=== PATIENT | female | born 1935 | race Caucasian/White ===

== ENCOUNTER 2017-06-11 15:21 | Inpatient (IN) ==
[2017-06-11] MEDS ORDERED: NS 500 ML IV ONE (15:50)
[2017-06-11] MEDS ORDERED: SALINE FLUSH 10ml SYRINGE IVF PRN (15:50)
--- NOTE | 2017-06-11 15:56 | Emergency Department Report ---
General Adult HPI - General Chief complaint: Upper Respiratory Infection Stated complaint: cough,sore throat,weakness Time Seen by Provider: 06/11/17 15:39 Source: patient, family Mode of arrival: ambulatory Limitations: no limitations - History of Present Illness HPI narrative: Mrs. Caputo is an 81 year old female who is brought to ER by her daughter and son in law with complaints of upper resp illness. She was seen yesterday in PCP office, Dr. Medellin for symptoms. Rapid flu swab negative. Started on keflex for URI. It was suggested at that time for patient to be evaluated further in ER. 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 Patient has been very weak, with increased difficulty getting up and around at home. Denies fevers. Denies chest pain. Denies body aches. Denies headache. Feels symptoms are related to a sinus infection. Family reports some increased confusion this morning, mild. They also indicate patient seems more short of air but patient denies. Has not been drinking much fluids because of not feeling well. Denies n/ v/d. Denies abdominal pain. Denies dysuria or urinary symptoms. 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 No known hx of CHF particularly but does have a tendency to become edematous according to son in law. She also does have a hx of HTN and did take her BP medication a few hours ago. complaint: URI Onset (ago): day(s) (3) Location: head Relieving factors: none Exacerbating factors: none Associated symptoms: cough, loss of appetite, malaise, shortness of breath, weakness Treatments prior to arrival: none - Related Data Home Medications Medication Instructions Recorded Confirmed Atorvastatin Calcium 40 mg PO HS #0 09/17/14 06/11/17 Insulin Aspart [Novolog Flexpen] 18 unit SQ TIDWM #0 01/01/15 06/11/17 Insulin Detemir [Levemir] 41 unit SQ HS #0 vial 01/01/15 06/11/17 Cholecalciferol [Vit. D-3] 1,000 mg PO DAILY #0 07/24/15 06/11/17 Multivit-Min/FA/Lycopen/Lutein 1 tab PO MOWEFR #0 07/24/15 06/11/17 [Centrum Silver Tablet] Acetaminophen [Acetaminophen Extra 500 mg PO Q4H PRN 02/23/17 06/11/17 Strength] Furosemide [Lasix] 20 mg PO DAILY 02/23/17 06/11/17 Levothyroxine Tab [Synthroid] 25 mcg PO ACB 02/23/17 06/11/17 Dabigatran [Pradaxa] 150 mg PO BID 06/11/17 06/11/17 Labetalol [Normodyne] 200 mg PO BID 06/11/17 06/11/17 Lisinopril [Prinivil] 40 mg PO HS 06/11/17 06/11/17 NIFEdipine [Nifedipine ER] 60 mg PO DAILY 06/11/17 06/11/17 Promethazine HCl/Codeine 5 ml PO Q6H PRN 06/11/17 06/11/17 [Prometh-Codein 6.25-10 mg/5 ml] cephALEXin [Cephalexin] 500 mg PO QID 06/11/17 06/11/17 Allergies Allergy/AdvReac Type Severity Reaction Status Date / Time chloramphenicol Allergy Unknown Verified 06/11/17 15:30 Review of Systems All systems: reviewed and negative except as stated Constitutional: Reports: weakness. Denies: fever ENT: Reports: congestion. Denies: throat pain Cardiovascular: Denies: chest pain Respiratory: Reports: cough Gastrointestinal: Denies: abdominal pain, nausea, vomiting, diarrhea Musculoskeletal: Denies: back pain Neurological: Reports: weakness. Denies: headache Endocrine: Reports: fatigue PFSH Patient Stated Medical History Cataracts Yes Hearing Loss Yes Other HEENT Yes: Wears glasses Hypertension Yes Myocardial Infarction Yes Diabetes Mellitus Type 2 Yes Gastroesophageal Reflux Yes Disease Other GI Yes: Gallstones Hx Kidney Stones Yes Hx Urinary Tract Infection Yes Other Hematologic Yes: Takes Pladaxa Osteoarthritis Yes Other Musculoskeletal Yes: Diabetic neuropathy Shingles Yes: Resolved - Social History Smoking status: Never smoker Substance use type: does not use Alcohol intake frequency: does not drink Housing: house Household members: spouse Current occupational status: retired Physical Exam - General General appearance: alert, in distress (mild resp) - Head Head exam: atraumatic, normocephalic, normal inspection - Eye Eye exam: Present: normal appearance, PERRL. Absent: scleral icterus, conjunctival injection - Expanded ENT Exam Nose exam: Present: sinus tenderness (left maxillary) Throat exam: Present: other (dry mucosa) - Neck Neck exam: Present: normal inspection, full ROM, trachea midline - Chest Chest inspection: Present: normal inspection, symmetric chest wall rise - Respiratory Respiratory exam: Present: normal lung sounds bilaterally, other (exhibits mild dyspnea) - Cardiovascular Cardiovascular exam: Present: regular rate, normal rhythm, normal heart sounds - Abdominal Exam Abdominal exam: Present: soft, normal bowel sounds. Absent: distention, tenderness - Skin Skin exam: Present: warm, dry, intact - Neurological Exam Neurological exam: Present: alert, oriented X3 - Psychiatric Psychiatric exam: Present: normal affect, normal mood Course - Consultations Consultation #1: dread Time: 17:50 (admit obs-dehydration) Vital Signs Temperature 98.6 F 06/11/17 15:33 Pulse Rate 64 06/11/17 15:33 Respiratory Rate 24 06/11/17 15:33 Blood Pressure 94/53 06/11/17 15:33 Pulse Oximetry 92 06/11/17 15:33 Temperature 98.6 F 06/11/17 15:33 Pulse Rate 69 06/11/17 17:31 Respiratory Rate 20 06/11/17 17:31 Blood Pressure 126/60 06/11/17 17:31 Pulse Oximetry 93 06/11/17 17:31 Medical Decision Making - Lab Data Result diagrams: 06/11/17 16:07 06/11/17 16:07 Lab Results 06/11/17 06/11/17 06/11/17 Range/Units 16:07 16:07 16:24 WBC 10.5 (4.5-11.0) T/MM3 RBC 3.71 L (4.00-5.20) M/MM3 Hgb 11.2 L (12-16) GM/DL Hct 35.1 L (36-46) % MCV 94.6 (80-100) UM3 MCH 30.2 (26-34) UUG MCHC 31.9 (31-37) GM/DL RDW Std Deviation 43.9 (36.9-50.2) FL Plt Count 255 (130-400) T/MM3 MPV 10.7 (9.4-12.4) UM3 Immature Gran % (Auto) 0.3 (0.0-0.5) % Neut % (Auto) 70.5 H (33-66) % Lymph % (Auto) 15.7 L (23-45) % [place] % (Auto) 10.1 H (0-9.0) % Eos % (Auto) 2.7 (0-4) % Baso % (Auto) 0.7 (0-2) % Neut # (Auto) 7.4 (1.8-7.7) T/MM3 Lymph # (Auto) 1.7 (1-4.8) T/MM3 [place] # (Auto) 1.1 H (0-0.8) T/MM3 Eos # (Auto) 0.3 (0-0.5) T/MM3 Baso # (Auto) 0.1 (0-0.2) T/MM3 Abs Immat Gran (auto) 0.03 (0.00-0.03) T/MM3 Turbidity < 20 (0-20) Sodium 145 H (134-144) MEQ/L Potassium 4.2 (3.6-5) MEQ/L Chloride 111 H (98-107) MEQ/L Carbon Dioxide 16 L (22-30) MEQ/L Anion Gap 18 H (5-15) MEQ/L BUN 49.0 H (7-17) MG/DL Creatinine 2.8 H (0.7-1.2) mg/dL GFR Calculation 16 BUN/Creatinine Ratio 18 (6-26) RATIO Glucose 178 H (65-110) MG/DL Calculated Osmolality 296 H (261-280) MOSM/KG Calcium 8.2 L (8.4-10.2) MG/DL Total Bilirubin 0.40 (0.20-1.30) MG/DL Icterus Index < 2 (0-7) AST 19 (14-36) U/L ALT 22 (9-52) U/L Alkaline Phosphatase 93 (38-126) U/L Total Protein 7.0 (6.3-8.2) G/DL Albumin 3.9 (3.5-5.0) g/dL Globulin 3.1 (2.4-3.6) G/DL Albumin/Globulin Ratio 1.3 (1.1-2.2) RATIO Plasma Lactate 0.9 (0.6-2.2) MMOL/L Specimen Hemolysis < 15 (0-25) Adenovirus (PCR) Negative (Negative) B.parapertussis DNA PCR Negative (Negative) C. pneumoniae DNA (PCR) Negative (Negative) Coronavirus OC43 (PCR) Negative (Negative) Coronavirus HKU1 (PCR) Negative (Negative) Coronavirus 229E (PCR) Negative (Negative) Coronavirus NL63 (PCR) Negative (Negative) Human Metapneumovir PCR Negative (Negative) Influenza Type A (PCR) Negative (Negative) Influenza Type B (PCR) Negative (Negative) M. pneumoniae (PCR) Negative (Negative) Parainfluenza 1 (PCR) Negative (Negative) Parainfluenza 2 (PCR) Negative (Negative) Parainfluenza 3 (PCR) Negative (Negative) Parainfluenza 4 (PCR) Negative (Negative) RSV (PCR) Negative (Negative) Entero/Rhino (PCR) Negative (Negative) Disposition Clinical Impression: Upper respiratory infection, Dehydration Disposition: 02 To [facility] Prescriptions: No Action Insulin Detemir [Levemir] 41 unit SQ HS #0 vial Insulin Aspart [Novolog Flexpen] 18 unit SQ TIDWM #0 Multivit-Min/FA/Lycopen/Lutein [Centrum Silver Tablet] 1 tab PO MOWEFR #0 Furosemide [Lasix] 20 mg PO DAILY Acetaminophen [Acetaminophen Extra Strength] 500 mg PO Q4H PRN PRN Reason: Pain Promethazine HCl/Codeine [Prometh-Codein 6.25-10 mg/5 ml] 5 ml PO Q6H PRN PRN Reason: Cough NIFEdipine [Nifedipine ER] 60 mg PO DAILY Lisinopril [Prinivil] 40 mg PO HS Labetalol [Normodyne] 200 mg PO BID cephALEXin [Cephalexin] 500 mg PO QID Atorvastatin Calcium 40 mg PO HS #0 Cholecalciferol [Vit. D-3] 1,000 mg PO DAILY #0 Levothyroxine Tab [Synthroid] 25 mcg PO ACB Dabigatran [Pradaxa] 150 mg PO BID Referrals: Ashwin Medellin MD [Family Provider] - - Seen By: midlevel
[2017-06-11] MEDS: 1/2 NS 1,000 ML IV SCH (18:55)
[2017-06-11] MEDS ORDERED: ONDANSETRON 4 MG/2 ML INJECTION IVP PRN (19:39)
[2017-06-11] MEDS ORDERED: ACETAMINOPHEN 500 MG TABLET PO PRN (19:39)
--- NOTE | 2017-06-11 19:43 | History & Physical Report ---
History of Present Illness Date: 06/11/17 Chief complaint: UTI-cough, sore throat, weakness HPI: Mrs Caputo is an 81 y/o female who presents to ED for evaluation of cough, sore throat, and weakness. She first started having cough and sinus congestion on Tuesday. Symptoms have been progressive. She reports cough and congestion but has not had sputum production - reports only once has she been able to bring up sputum (was thick and hard to clear). Having matted and watery eyes. Increasing fatigue, notes dizziness with positional changes. Appetite very diminished but has been trying to keep liquids in. Minimal nausea. Notes variability of bowels - slow then loose. Denies ab pain or nausea. Not feeling SOA or chest congestion. No chest pressure, pain, heaviness, or palpitations. Does report decreasing urine output - voided this am at 1000am and not needed to go since. Did feel amount of urine this morning lower than usual. No f/c. Cares for her with Parkinson's, so did not try to go to clinic before her scheduled apt on 06/10. In clinic, flu negative. Started on cephalexin for URI symptoms and Phenergan with Codeine for cough. With increasing weakness, did present to ED for evaluation today. CXR not showing obvious infiltrate. Maintaining saturations well on RA. Initial BP 99/53, improving to 123/60 with IVF. Lab returned showing normal WBC at 10.5, but creatinine with elevation at 2.8 (baseline 1.4 to 1.8) and serum sodium elevated at 145. With her acute kidney injury and weakness, did place patient in OBS status for further IV hydration and monitoring. Review of Systems All systems PM: 10-point ROS was reviewed, no additional remarkable complaints except - Constitutional Constitutional: Present: anorexia, fatigue, lethargy. Absent: fever(s) - EENMT Mouth/Throat: Present: sore throat, dry mouth - Cardiovascular Cardiovascular: Absent: chest pain, palpitations, syncope, edema - Respiratory Respiratory: Present: cough. Absent: dyspnea, wheezing - Gastrointestinal Gastrointestinal: Absent: abdominal pain, nausea - Musculoskeletal Musculoskeletal: Present: muscle weakness. Absent: muscle cramps - Integumentary/Breasts Integumentary: Absent: pruritus, rash - Neurological Neurological: Present: dizziness. Absent: focal weakness Past Medical History CAD HTN Dyslipidemia Afib Anticoagulation with Pradaxa Type II DM Hypothyroidism Stage III CKD Surgical History: D&C, Cholecystectomy/appy, B cataract, Ju filter placement Family History Updates: Father had HTN, of stroke. Mother of uterine Ca - had lymphosarcoma. - Social History Smoking status: Never smoker Substance use type: does not use Household members: spouse (He has Parkinson's - pt caregiver for ) Current residence: Apartment/Private Home Social history: Dr Medellin PCP, Dr [facility] Medications Home Medications Medication Instructions Recorded Confirmed Type Atorvastatin Calcium 40 mg PO HS #0 09/17/14 06/11/17 History Insulin Aspart [Novolog Flexpen] 18 unit SQ TIDWM #0 01/01/15 06/11/17 History Insulin Detemir [Levemir] 41 unit SQ HS #0 vial 01/01/15 06/11/17 History Cholecalciferol [Vit. D-3] 1,000 mg PO DAILY #0 07/24/15 06/11/17 History Multivit-Min/FA/Lycopen/Lutein 1 tab PO MOWEFR #0 07/24/15 06/11/17 History [Centrum Silver Tablet] Acetaminophen [Acetaminophen Extra 500 mg PO Q4H PRN 02/23/17 06/11/17 History Strength] Furosemide [Lasix] 20 mg PO DAILY 02/23/17 06/11/17 History Levothyroxine Tab [Synthroid] 25 mcg PO ACB 02/23/17 06/11/17 History Dabigatran [Pradaxa] 150 mg PO BID 06/11/17 06/11/17 History Labetalol [Normodyne] 200 mg PO BID 06/11/17 06/11/17 History Lisinopril [Prinivil] 40 mg PO HS 06/11/17 06/11/17 History NIFEdipine [Nifedipine ER] 60 mg PO DAILY 06/11/17 06/11/17 History Promethazine HCl/Codeine 5 ml PO Q6H PRN 06/11/17 06/11/17 History [Prometh-Codein 6.25-10 mg/5 ml] cephALEXin [Cephalexin] 500 mg PO QID 06/11/17 06/11/17 History Allergies Allergy/AdvReac Type Severity Reaction Status Date / Time chloramphenicol Allergy Unknown Verified 06/11/17 15:30 Exam Vital Signs: Temperature 98.6 F 06/11/17 15:33 Pulse Rate 71 06/11/17 19:00 Respiratory Rate 18 06/11/17 19:00 Blood Pressure 116/53 06/11/17 18:56 Pulse Oximetry 94 06/11/17 19:00 - Constitutional Present: mild distress, well nourished, well developed, obese, cooperative, other (Appears tired and weak ) - Routine HEENT Exam Head: Present: normocephalic, atraumatic, abrasion Eye: Present: PERRL ENT: Present: mucous membranes dry - Routine Neck Exam Present: supple, full ROM, trachea midline - Routine Respiratory Exam Present: decreased breath sounds. Absent: prolonged expiratory phase, rales, respiratory distress, rhonchi, wheezes, crackles - Routine Cardiovascular Exam Present: RRR, no murmur - Routine Abdominal Exam Present: soft, normoactive bowel sounds, non distended, non tender - Routine Extremities Exam Present: no edema, pulses intact. Absent: cyanosis, clubbing - Routine Skin Exam Present: intact, dry, warm, normal turgor - Routine Neurological Exam Present: alert, oriented X3, CN II-XII intact, vision grossly intact, hearing grossly intact, normal speech. Absent: motor deficit, altered mental status - Routine Psychiatric Exam Present: normal affect, normal thought process, cooperative Results - Labs CBC & Chem 7: 06/11/17 16:07 06/11/17 16:07 Assessment and Plan Assessment and Plan: Assessment Acute kidney injury Dehydration Hypernatremia (POA) URI - likely viral, influenza negative (suspect recent influenza) Anemia - ? etiology. ? chronic disease, ? 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 Stage III CKD Obesity with BMI 31.8 Plan OBS admission Start 1/2 NS at 100cc/hr for hydration. Hold nifedipine, lisinopril, and furosemide due to dehydration/hypotension and LORI. Continue labetalol, but at 100mg BID (home dose 200mg). Hold Pradaxa due to LORI - initiate SCD. Monitor sugars. Will continue Levemir, holding mealtime insulin due to poor oral intake. Tele secondary to afib and LORI. May use Phenergan with Codeine for cough. Zofran prn nausea. Tylenol prn discomfort. Recheck BMP in am secondary to LORI and IVF use. Will recheck CBC due to anemia. Discussed code status with patient. Would 'not want to be kept alive artificially.' Care to return to Dr Medellin at time of discharge from [facility] [place]. DVT Prophylaxis: SCD's Resuscitation Status: Full Code - Time spent with patient Time with patient PN: 70 minutes - Physician Narrative Physician: Horacio Mancini MD Narrative: Date: 06/11/17 Time: 1933 Hospital Course Summary Disclaimer: The visit summary below is not to be considered part of the above Progress Note. Hospital Course: 06/11/17 OBS admission Start 1/2 NS at 100cc/hr for hydration. Hold nifedipine, lisinopril, and furosemide due to dehydration/hypotension and LORI. Continue labetalol, but at 100mg BID (home dose 200mg). Hold Pradaxa due to LORI - initiate SCD. Monitor sugars. Will continue Levemir, holding mealtime insulin due to poor oral intake. Tele secondary to afib and LORI. May use Phenergan with Codeine for cough. Zofran prn nausea. Tylenol prn discomfort. Recheck BMP in am secondary to LORI and IVF use. Will recheck CBC due to anemia. Discussed code status with patient. Would 'not want to be kept alive artificially.' Care to return to Dr Medellin at time of discharge from [facility] [place].
[2017-06-11] MEDS: --POM--ATORVASTATIN 40 MG TABLET PO SCH (21:04)
[2017-06-11] MEDS: INSULIN DETEMIR 100unit/ml INJECTION SQ SCH (21:04)
[2017-06-11] MEDS: CEPHALEXIN 500 MG PO SCH (21:04)
[2017-06-11] MEDS: LABETALOL 100 MG PO SCH (21:05)
[2017-06-12] MEDS: 1/2 NS 1,000 ML IV SCH ×2 (05:06→16:16)
--- NOTE | 2017-06-12 09:05 | XRay Report ---
Indication: cough PROCEDURE: XR chest 1V: Encounter: Initial Comparison: January 01, 2015 Findings: The lungs are stable in appearance without new focal airspace consolidation. There is no pleural effusion or pneumothorax. The heart size, pulmonary vascularity and mediastinal contours are unchanged. IMPRESSION: Stable appearance of the chest without acute cardiopulmonary disease. .
[2017-06-12] MEDS: LABETALOL 100 MG PO SCH ×2 (09:20→21:47)
[2017-06-12] MEDS: CEPHALEXIN 500 MG PO SCH ×4 (09:21→21:44)
[2017-06-12] MEDS: PROMETHAZINE/CODEINE ORAL LIQUID 5ml PO PRN (16:26)
--- NOTE | 2017-06-12 18:03 | Progress Note ---
- Date 06/12/17 Subjective: F/U: Acute kidney injury, Dehydration, Hypernatremia Doing slightly better today. Appetite starting to increase. Able to take in food better. No nausea or ab pain. Food still tastes like 'sawdust.' Not SOA, but cough still very problematic. Notes some discomfort in lower ribs from cough. Making more urine. Not feeling as dizzy/lightheaded when up. Strength still decreased. No f/c. Objective Vital signs: Temperature 98.3 F 06/12/17 15:18 Pulse Rate 63 06/12/17 16:00 Respiratory Rate 16 06/12/17 15:18 Blood Pressure 141/66 H 06/12/17 15:18 Pulse Oximetry 95 06/12/17 15:18 Height/Weight/BMI: Height 1.6 m Weight 82 kg Body Mass Index 31.8 - Constitutional Present: well nourished, well developed, obese, cooperative - Routine HEENT Exam Head: Present: normocephalic, atraumatic Eye: Present: EOMI, PERRL ENT: Present: mucous membranes moist Comments: Eyes less sunken than yesterday - Routine Respiratory Exam Present: decreased breath sounds. Absent: rales, rhonchi, wheezes, crackles - Routine Cardiovascular Exam Present: RRR, no murmur - Routine Abdominal Exam Present: soft, non distended, non tender. Absent: normoactive bowel sounds ( decreased, but present), guarding - Routine Extremities Exam Absent: cyanosis, clubbing, no edema Comments: SCD in place - Routine Musculoskeletal Exam Musculoskeletal: Present: no clubbing or cyanosis - Routine Skin Exam Present: dry, warm - Routine Neurological Exam Present: alert, oriented X3, CN II-XII intact, moving all extremities, vision grossly intact, hearing grossly intact, normal speech. Absent: motor deficit, altered mental status - Routine Psychiatric Exam Present: normal affect, normal thought process, cooperative Results - Labs CBC & Chem 7: 06/12/17 04:31 06/12/17 15:36 Assessment and Plan (1) Acute kidney injury Current visit: Yes Status: Acute (2) Dehydration Current visit: Yes Status: Acute Assessment and Plan: Assessment Acute kidney injury Dehydration Hypernatremia (POA) URI - likely viral, influenza negative (suspect recent influenza) Anemia - ? etiology. ? chronic disease, ? 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 Stage III CKD Obesity with BMI 31.8 Plan Creatinine with slow improvement (2.7 this am and 2.5 on recheck this afternoon) . BP improving. Will change admission status to inpatient secondary to dehydration that is severe/persistent with acute kidney showing continued needs for IVF support beyond OBS care. Continue with 1/2NS for hydration. Sodium decreased to 134. As oral intake improving, will restart mealtime insulin tomorrow, but at 8 units with meals (home dose 18). Need to be cautious for hypoglycemia with insulin use in setting of LORI - less renal clearing of insulin. BP improving but continue to hold nifedipine, lisinopril, and furosemide. Monitor blood pressure. Recheck CXR in am as infiltrate may 'blossom' with hydration. Consult PT/OT in am to help improve strength and functional status. Will recheck BMP in am due to LORI. Recheck CBC in am due to anemia. Case discussed with CM and patient's family. Time spent with patient care 25 minutes. DVT Prophylaxis: SCD's Resuscitation Status: Full Code - Time spent with patient Time with patient PN: 25 minutes - Physician Narrative Physician: Horacio Mancini MD Narrative: Date: 06/12/17 Time: 1800 Hospital Course Summary Disclaimer: The visit summary below is not to be considered part of the above Progress Note. Hospital Course: 06/11/17 OBS admission Start 1/2 NS at 100cc/hr for hydration. Hold nifedipine, lisinopril, and furosemide due to dehydration/hypotension and LORI. Continue labetalol, but at 100mg BID (home dose 200mg). Hold Pradaxa due to LORI - initiate SCD. Monitor sugars. Will continue Levemir, holding mealtime insulin due to poor oral intake. Tele secondary to afib and LORI. May use Phenergan with Codeine for cough. Zofran prn nausea. Tylenol prn discomfort. Recheck BMP in am secondary to LORI and IVF use. Will recheck CBC due to anemia. Discussed code status with patient. Would 'not want to be kept alive artificially.' Care to return to Dr Medellin at time of discharge from [facility] [place]. 06/12/17 Creatinine with slow improvement (2.7 this am and 2.5 on recheck this afternoon) . BP improving. Will change admission status to inpatient secondary to dehydration that is severe/persistent with acute kidney showing continued needs for IVF support beyond OBS care. Continue with 1/2NS for hydration. Sodium decreased to 134. As oral intake improving, will restart mealtime insulin tomorrow, but at 8 units with meals (home dose 18). Need to be cautious for hypoglycemia with insulin use in setting of LORI - less renal clearing of insulin. BP improving but continue to hold nifedipine, lisinopril, and furosemide. Monitor blood pressure. Recheck CXR in am as infiltrate may 'blossom' with hydration. Consult PT/OT in am to help improve strength and functional status.
[2017-06-12] MEDS ORDERED: POLYETHYL GLYCOL 3350 17gm PACKET PO PRN (18:13)
[2017-06-12] MEDS ORDERED: BISACODYL 10 MG SUPPOSITORY RECTALLY PRN (18:13)
[2017-06-12] MEDS ORDERED: DEXTROSE 50% SYRINGE 50ml (1 AMP) IVP PRN (18:15)
[2017-06-12] MEDS ORDERED: GLUCOSE ORAL GEL 40% 37.5gm PO PRN (18:15)
[2017-06-12] MEDS: --POM--ATORVASTATIN 40 MG TABLET PO SCH (21:44)
[2017-06-12] MEDS: INSULIN DETEMIR 100unit/ml INJECTION SQ SCH (21:45)
[2017-06-12] MEDS: INSULIN ASPART 100unit/ml INJECTION SQ PRN (21:46)
[2017-06-13] MEDS: 1/2 NS 1,000 ML IV SCH ×3 (02:24→22:55)
[2017-06-13] MEDS: LEVOTHYROXINE 25 MCG TABLET PO SCH (06:23)
--- NOTE | 2017-06-13 08:27 | XRay Report ---
Indication: Cough Procedure: XR chest 2V: Encounter: Subsequent Comparison: 06/11/2017 Technique: PA and lateral radiographs of the chest were obtained. Findings: Lungs and airways: Normal lung volumes. No focal airspace consolidation. Normal pulmonary vasculature. Pleura: No pleural effusion or pneumothorax. Heart and mediastinum: Aortic atherosclerosis. The heart is normal in size. Osseous structures and soft tissues: No acute osseous abnormality is seen. Postoperative changes of the left shoulder. 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 Impression: No acute cardiopulmonary process. .
[2017-06-13 09:12] VITALS: BMI 31.3
[2017-06-13] MEDS: INSULIN ASPART 100unit/ml INJECTION SQ SCH ×3 (09:33→19:00)
[2017-06-13] MEDS: LABETALOL 100 MG PO SCH ×2 (09:34→21:42)
[2017-06-13] MEDS: CEPHALEXIN 500 MG PO SCH ×4 (09:34→21:17)
[2017-06-13] MEDS: INSULIN ASPART 100unit/ml INJECTION SQ PRN ×3 (10:45→21:18)
--- NOTE | 2017-06-13 11:57 | Progress Note ---
- Date 06/13/17 Subjective: F/U: Acute kidney injury, Dehydration, Hypernatremia Doing okay. Appetite improving slowly. No nausea or ab pain. Urinating well. Still has nonproductive cough, but not feeling more SOA or having increased work of breathing. Strength improving-has been walking this morning with therapy ; still tired and weak, but really has not been able to be that active in the week before hospitalization. Objective Vital signs: Temperature 98.6 F 06/13/17 07:56 Pulse Rate 72 06/13/17 08:02 Respiratory Rate 20 06/13/17 07:56 Blood Pressure 170/67 H 06/13/17 08:02 Pulse Oximetry 94 06/13/17 08:02 Height/Weight/BMI: Height 1.6 m Weight 80.2 kg Body Mass Index 31.3 - Constitutional Present: well nourished, well developed, obese, cooperative - Routine HEENT Exam Head: Present: normocephalic, atraumatic Eye: Present: EOMI, PERRL ENT: Present: mucous membranes moist - Routine Respiratory Exam Present: decreased breath sounds. Absent: rales, respiratory distress, rhonchi , wheezes, crackles - Routine Cardiovascular Exam Present: RRR, no murmur - Routine Abdominal Exam Present: soft, normoactive bowel sounds, non distended, non tender. Absent: guarding - Routine Extremities Exam Present: no edema, pulses intact. Absent: cyanosis, clubbing - Routine Musculoskeletal Exam Musculoskeletal: Present: no clubbing or cyanosis - Routine Skin Exam Present: dry, warm - Routine Neurological Exam Present: alert, oriented X3, CN II-XII intact, moving all extremities, vision grossly intact, hearing grossly intact, normal speech. Absent: motor deficit, altered mental status - Routine Psychiatric Exam Present: normal affect, normal thought process, cooperative Results - Labs CBC & Chem 7: 06/13/17 04:07 06/13/17 04:07 Assessment and Plan (1) Acute kidney injury Current visit: Yes Status: Acute (2) Dehydration Current visit: Yes Status: Acute Assessment and Plan: Assessment Acute kidney injury Dehydration Hypernatremia (POA) URI - likely viral, influenza negative (suspect recent influenza) Anemia - ? etiology. ? chronic disease, ? 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 Potassium 3.9. BP with increased. Repeat CXR without infiltrate. Breathing well on RA. May restart nifedipine 60mg daily. Continue to hold lisinopril and furosemide. Continue with 1/2NS for hydration. Continue PT/OT to help improve functional status. Will recheck BMP in am due to LORI. Recheck CBC in am due to anemia. Case discussed with CM. Time spent with patient care 25 minutes. DVT Prophylaxis: SCD's Resuscitation Status: Full Code - Time spent with patient Time with patient PN: 25 minutes - Physician Narrative Physician: Horacio Mancini MD Narrative: Date: 06/13/17 Time: 1153 Hospital Course Summary Disclaimer: The visit summary below is not to be considered part of the above Progress Note. Hospital Course: 06/11/17 OBS admission Start 1/2 NS at 100cc/hr for hydration. Hold nifedipine, lisinopril, and furosemide due to dehydration/hypotension and LORI. Continue labetalol, but at 100mg BID (home dose 200mg). Hold Pradaxa due to LORI - initiate SCD. Monitor sugars. Will continue Levemir, holding mealtime insulin due to poor oral intake. Tele secondary to afib and LORI. May use Phenergan with Codeine for cough. Zofran prn nausea. Tylenol prn discomfort. Recheck BMP in am secondary to LORI and IVF use. Will recheck CBC due to anemia. Discussed code status with patient. Would 'not want to be kept alive artificially.' Care to return to Dr Medellin at time of discharge from [facility] [place]. 06/12/17 Creatinine with slow improvement (2.7 this am and 2.5 on recheck this afternoon) . BP improving. Will change admission status to inpatient secondary to dehydration that is severe/persistent with acute kidney showing continued needs for IVF support beyond OBS care. Continue with 1/2NS for hydration. Sodium decreased to 143. As oral intake improving, will restart mealtime insulin tomorrow, but at 8 units with meals (home dose 18). Need to be cautious for hypoglycemia with insulin use in setting of LORI - less renal clearing of insulin. BP improving but continue to hold nifedipine, lisinopril, and furosemide. Monitor blood pressure. Recheck CXR in am as infiltrate may 'blossom' with hydration. Consult PT/OT in am to help improve strength and functional status. 06/13/17 Creatinine decreased to 2.1. Potassium 3.9. BP with increased. Repeat CXR without infiltrate. Breathing well on RA. May restart nifedipine 60mg daily. Continue to hold lisinopril and furosemide. Continue with 1/2NS for hydration. Continue PT/OT to help improve functional status.
[2017-06-13] MEDS: --POM--ATORVASTATIN 40 MG TABLET PO SCH (21:17)
[2017-06-13] MEDS: INSULIN DETEMIR 100unit/ml INJECTION SQ SCH (21:18)
[2017-06-13] MEDS: REFRESH CLASSIC Eye Drops 0.4ml EACH EYE PRN (21:18)
[2017-06-13] MEDS: PROMETHAZINE/CODEINE ORAL LIQUID 5ml PO PRN (21:23)
[2017-06-14] MEDS: LEVOTHYROXINE 25 MCG TABLET PO SCH (05:48)
[2017-06-14] MEDS: CEPHALEXIN 500 MG PO SCH ×2 (09:16→14:54)
[2017-06-14] MEDS: LABETALOL 100 MG PO SCH (09:17)
[2017-06-14] MEDS: REFRESH CLASSIC Eye Drops 0.4ml EACH EYE PRN ×2 (09:19→14:53)
[2017-06-14] MEDS: 1/2 NS 1,000 ML IV SCH (09:23)
[2017-06-14] MEDS: INSULIN ASPART 100unit/ml INJECTION SQ SCH ×2 (09:24→14:51)
[2017-06-14] MEDS: INSULIN ASPART 100unit/ml INJECTION SQ PRN ×2 (11:57→14:53)
--- NOTE | 2017-06-14 13:10 | Progress Note ---
- Date 06/14/17 Subjective: F/U: Acute kidney injury, Dehydration, Hypernatremia Doing okay today. Still with dry cough. Not feeing SOA or congestion. Appetite varies. Drinking well. No n/v. Strength gradually improving. No f/c. Urinating well. Does feel she is doing well enough to go home. Objective Vital signs: Temperature 99 F 06/14/17 07:00 Pulse Rate 82 06/14/17 07:36 Respiratory Rate 20 06/14/17 07:00 Blood Pressure 138/71 06/14/17 07:36 Pulse Oximetry 96 06/14/17 07:36 Height/Weight/BMI: Height 1.6 m Weight 80.2 kg Body Mass Index 31.3 - Constitutional Present: well nourished, well developed, obese, cooperative - Routine HEENT Exam Head: Present: normocephalic, atraumatic Eye: Present: PERRL ENT: Present: mucous membranes moist - Routine Respiratory Exam Present: decreased breath sounds. Absent: rales, respiratory distress, rhonchi , wheezes, crackles - Routine Cardiovascular Exam Present: RRR, no murmur - Routine Abdominal Exam Present: soft, normoactive bowel sounds, non distended, non tender. Absent: guarding - Routine Extremities Exam Present: pulses intact. Absent: cyanosis, clubbing - Routine Musculoskeletal Exam Musculoskeletal: Present: no clubbing or cyanosis - Routine Skin Exam Present: dry, warm - Routine Neurological Exam Present: alert, oriented X3, CN II-XII intact, moving all extremities, vision grossly intact, hearing grossly intact, normal speech. Absent: motor deficit, altered mental status - Routine Psychiatric Exam Present: normal affect, normal thought process, cooperative Results - Labs CBC & Chem 7: 06/14/17 04:51 06/14/17 04:51 Assessment and Plan (1) Acute kidney injury Current visit: Yes Status: Acute (2) Dehydration Current visit: Yes Status: Acute Assessment and Plan: Assessment Acute kidney injury Dehydration Hypernatremia (POA) URI - likely viral, influenza negative (suspect recent influenza) Anemia - ? etiology. ? chronic disease, ? 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 Maintaining saturations on RA. Strength improving. Will discharge to home. Encourage diet as able - pt to decrease mealtime insulin if not eating 100% of meal. Hold furosemide until eating well. Keep lisinopril on hold for at least 1 week - needs BMP checked in about 1 week. Will have pt follow up with Dr Medellin in 1 week. Recheck BMP at that time secondary to resolving LORI. Consider restarting lisinopril at that time base on how patient's blood pressure and lab is looking. Good idea to recheck BMP 1 week after restarting lisinopril to monitor for worsening renal status. See orders for details. Case discussed with CM. Time spent with patient care and discharge greater than 30 minutes. DVT Prophylaxis: SCD's Resuscitation Status: Full Code - Physician Narrative Physician: Horacio Mancini MD Narrative: Date: 06/14/17 Time: 1302 Hospital Course Summary Disclaimer: The visit summary below is not to be considered part of the above Progress Note. Hospital Course: 06/11/17 OBS admission Start 1/2 NS at 100cc/hr for hydration. Hold nifedipine, lisinopril, and furosemide due to dehydration/hypotension and LORI. Continue labetalol, but at 100mg BID (home dose 200mg). Hold Pradaxa due to LORI - initiate SCD. Monitor sugars. Will continue Levemir, holding mealtime insulin due to poor oral intake. Tele secondary to afib and LORI. May use Phenergan with Codeine for cough. Zofran prn nausea. Tylenol prn discomfort. Recheck BMP in am secondary to LORI and IVF use. Will recheck CBC due to anemia. Discussed code status with patient. Would 'not want to be kept alive artificially.' Care to return to Dr Medellin at time of discharge from [facility] [place]. 06/12/17 Creatinine with slow improvement (2.7 this am and 2.5 on recheck this afternoon) . BP improving. Will change admission status to inpatient secondary to dehydration that is severe/persistent with acute kidney showing continued needs for IVF support beyond OBS care. Continue with 1/2NS for hydration. Sodium decreased to 143. As oral intake improving, will restart mealtime insulin tomorrow, but at 8 units with meals (home dose 18). Need to be cautious for hypoglycemia with insulin use in setting of LORI - less renal clearing of insulin. BP improving but continue to hold nifedipine, lisinopril, and furosemide. Monitor blood pressure. Recheck CXR in am as infiltrate may 'blossom' with hydration. Consult PT/OT in am to help improve strength and functional status. 06/13/17 Creatinine decreased to 2.1. Potassium 3.9. BP with increased. Repeat CXR without infiltrate. Breathing well on RA. May restart nifedipine 60mg daily. Continue to hold lisinopril and furosemide. Continue with 1/2NS for hydration. Continue PT/OT to help improve functional status. 06/14/17 Lab showing improvement - creatinine decrease to 1.8. Maintaining saturations on RA. Strength improving. Will discharge to home. Encourage diet as able - pt to decrease mealtime insulin if not eating 100% of meal. Hold furosemide until eating well. Keep lisinopril on hold for at least 1 week - needs BMP checked in about 1 week. Will have pt follow up with Dr Medellin in 1 week. Recheck BMP at that time secondary to resolving LORI. Consider restarting lisinopril at that time base on how patient's blood pressure and lab is looking. Good idea to recheck BMP 1 week after restarting lisinopril to monitor for worsening renal status. See orders for details.
--- NOTE | 2017-06-14 13:21 | Discharge Summary ---
Discharge Information Date of admission: 06/12/17 17:57 Anticipated date of discharge: 06/14/17 Attending Physician: Horacio Mancini MD Primary care physician: Ashwin Medellin MD Consults: PT/OT - Discharge Diagnosis (1) Acute kidney injury Status: Acute (2) Dehydration Status: Acute Discharge diagnosis Acute kidney injury Associated conditions and complications Dehydration Hypernatremia (POA) URI - likely viral, influenza negative (suspect recent influenza) Anemia - ? etiology. ? chronic disease, ? 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 Stage III CKD Obesity with BMI 31.8 - Laboratory Labs: Admit Lab 06/11/17 16:07 WBC 10.5 Hgb 11.2 L Hct 35.1 L MCV 94.6 Plt Count 255 Neut % (Auto) 70.5 H Lymph % (Auto) 15.7 L [place] % (Auto) 10.1 H Eos % (Auto) 2.7 Baso % (Auto) 0.7 Admit Lab 06/11/17 16:07 Sodium 145 H Potassium 4.2 Chloride 111 H Carbon Dioxide 16 L Anion Gap 18 H BUN 49.0 H Creatinine 2.8 H GFR Calculation 16 BUN/Creatinine Ratio 18 Glucose 178 H Calculated Osmolality 296 H Calcium 8.2 L Total Bilirubin 0.40 AST 19 ALT 22 Alkaline Phosphatase 93 Total Protein 7.0 Albumin 3.9 Globulin 3.1 Albumin/Globulin Ratio 1.3 Plasma Lactate 0.9 TSH 06/12/17 04:31 TSH 5.47 H 06/14/17 04:51 06/14/17 04:51 - Radiology Radiology: Date of Exam: 06/11/17 PROCEDURE: XR chest 1V Findings: The lungs are stable in appearance without new focal airspace consolidation. There is no pleural effusion or pneumothorax. The heart size, pulmonary vascularity and mediastinal contours are unchanged. IMPRESSION: Stable appearance of the chest without acute cardiopulmonary disease. --- Date of Exam: 06/13/17 Procedure: XR chest 2V Findings: Lungs and airways: Normal lung volumes. No focal airspace consolidation. Normal pulmonary vasculature. Pleura: No pleural effusion or pneumothorax. Heart and mediastinum: Aortic atherosclerosis. The heart is normal in size. Osseous structures and soft tissues: No acute osseous abnormality is seen. Postoperative changes of the left shoulder. 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 Impression: No acute cardiopulmonary process. History of Present Illness HPI: Mrs Caputo is an 81 y/o female who presents to ED for evaluation of cough, sore throat, and weakness. She first started having cough and sinus congestion on Tuesday. Symptoms have been progressive. She reports cough and congestion but has not had sputum production - reports only once has she been able to bring up sputum (was thick and hard to clear). Having matted and watery eyes. Increasing fatigue, notes dizziness with positional changes. Appetite very diminished but has been trying to keep liquids in. Minimal nausea. Notes variability of bowels - slow then loose. Denies ab pain or nausea. Not feeling SOA or chest congestion. No chest pressure, pain, heaviness, or palpitations. Does report decreasing urine output - voided this am at 1000am and not needed to go since. Did feel amount of urine this morning lower than usual. No f/c. Cares for her with Parkinson's, so did not try to go to clinic before her scheduled apt on 06/10. In clinic, flu negative. Started on cephalexin for URI symptoms and Phenergan with Codeine for cough. With increasing weakness, did present to ED for evaluation today. CXR not showing obvious infiltrate. Maintaining saturations well on RA. Initial BP 99/53, improving to 123/60 with IVF. Lab returned showing normal WBC at 10.5, but creatinine with elevation at 2.8 (baseline 1.4 to 1.8) and serum sodium elevated at 145. With her acute kidney injury and weakness, did place patient in OBS status for further IV hydration and monitoring. For complete details of the H&P refer to that document. Objective Vital signs: Temperature 99 F 06/14/17 07:00 Pulse Rate 82 06/14/17 07:36 Respiratory Rate 20 06/14/17 07:00 Blood Pressure 138/71 06/14/17 07:36 Pulse Oximetry 96 06/14/17 07:36 Height/Weight/BMI: Height 1.6 m Weight 80.2 kg Body Mass Index 31.3 Hospital Course This is a general summary of the patient's hospital course. For more details refer to the complete medical record. Hospital course: 06/11/17 OBS admission Start 1/2 NS at 100cc/hr for hydration. Hold nifedipine, lisinopril, and furosemide due to dehydration/hypotension and LORI. Continue labetalol, but at 100mg BID (home dose 200mg). Hold Pradaxa due to LORI - initiate SCD. Monitor sugars. Will continue Levemir, holding mealtime insulin due to poor oral intake. Tele secondary to afib and LORI. May use Phenergan with Codeine for cough. Zofran prn nausea. Tylenol prn discomfort. Recheck BMP in am secondary to LORI and IVF use. Will recheck CBC due to anemia. Discussed code status with patient. Would 'not want to be kept alive artificially.' Care to return to Dr Medellin at time of discharge from [facility]. 06/12/17 Creatinine with slow improvement (2.7 this am and 2.5 on recheck this afternoon) . BP improving. Will change admission status to inpatient secondary to dehydration that is severe/persistent with acute kidney showing continued needs for IVF support beyond OBS care. Continue with 1/2NS for hydration. Sodium decreased to 143. As oral intake improving, will restart mealtime insulin tomorrow, but at 8 units with meals (home dose 18). Need to be cautious for hypoglycemia with insulin use in setting of LORI - less renal clearing of insulin. BP improving but continue to hold nifedipine, lisinopril, and furosemide. Monitor blood pressure. Recheck CXR in am as infiltrate may 'blossom' with hydration. Consult PT/OT in am to help improve strength and functional status. 06/13/17 Creatinine decreased to 2.1. Potassium 3.9. BP with increased. Repeat CXR without infiltrate. Breathing well on RA. May restart nifedipine 60mg daily. Continue to hold lisinopril and furosemide. Continue with 1/2NS for hydration. Continue PT/OT to help improve functional status. 06/14/17 Lab showing improvement - creatinine decrease to 1.8. Maintaining saturations on RA. Strength improving. Will discharge to home. Encourage diet as able - pt to decrease mealtime insulin if not eating 100% of meal. Hold furosemide until eating well. Keep lisinopril on hold for at least 1 week - needs BMP checked in about 1 week. Will have pt follow up with Dr Medellin in 1 week. Recheck BMP at that time secondary to resolving LORI. Consider restarting lisinopril at that time base on how patient's blood pressure and lab is looking. Good idea to recheck BMP 1 week after restarting lisinopril to monitor for worsening renal status. See orders for details. Time spent with patient: discharge greater than 30 minutes Resuscitation Status: Full Code Discharge Plan - Discharge Disposition Discharge Date: 06/14/17 Disposition: 01 Discharged Home, Self-Care *Condition: Stable Reason For Visit (Visit label in EMR): Weakness, dehydration - Discharge Medications *Discharge Medications: New Insulin Aspart [NovoLOG] 8 unit SQ WM vial Continue Insulin Detemir [Levemir] 41 unit SQ HS #0 vial Multivit-Min/FA/Lycopen/Lutein [Centrum Silver Tablet] 1 tab PO MOWEFR #0 Acetaminophen [Acetaminophen Extra Strength] 500 mg PO Q4H PRN PRN Reason: Pain Promethazine HCl/Codeine [Prometh-Codein 6.25-10 mg/5 ml] 5 ml PO Q6H PRN PRN Reason: Cough NIFEdipine [Nifedipine ER] 60 mg PO DAILY Labetalol [Normodyne] 200 mg PO BID cephALEXin [Cephalexin] 500 mg PO QID Atorvastatin Calcium 40 mg PO HS #0 Cholecalciferol [Vit. D-3] 1,000 mg PO DAILY #0 Levothyroxine Tab [Synthroid] 25 mcg PO ACB Dabigatran [Pradaxa] 150 mg PO BID Discontinued Insulin Aspart [Novolog Flexpen] 18 unit SQ TIDWM #0 Furosemide [Lasix] 20 mg PO DAILY Lisinopril [Prinivil] 40 mg PO HS - Discharge Packet/Instructions *Diet: 2000 KCAL ADA as tolerated. Plenty of fluids *Activity: As tolerated *Pain Management/Treatment: Tylenol okay for pain. *Wound Care: n/a Additional Instructions: Hold (do not use) Lasix (furosemide) until you are eating and drinking as normal. Do NOT use lisinopril - Dr Medellin will check lab at your next visit and determine when you can start lisinopril. Decrease mealtime insulin to 8 units with meal - increase to 18 as appetite improves. Hold mealtime insulin if not eating. *Expected Signs/Symptoms: Improvement of strength and appetite. *Notify Physician if: Temp >100.4. Oral drive not improved in 1 week. *During Business Hours Contact: Dr Medellin *After Business Hours Contact: Call [facility] and have Dr Medellin or his covering provider contacted. *Pending Lab/Results: No Pending Lab - Referrals/Follow Up *Referrals/Follow Up: Ashwin Medellin MD [Family Provider] - 1 Week (Hospital follow up for Acute kidney injury. Recheck BMP at that time secondary to resolving LORI. Consider restarting lisinopril at that time base on how patient's blood pressure and lab is looking. Good idea to recheck BMP 1 week after restarting lisinopril to monitor for worsening renal status. ) - Patient Handouts Patient Handouts: Dehydration (GEN), Weakness (GEN) - Dismissal Complete Discharge Instructions are:: Complete Physician Narrative - Narrative Physician: Horacio Mancini MD Attestation Narrative: Date: 06/14/17 Time: 1318 I have independently interviewed and examined patient prior to discharge. See my progress note from today for details. Medically stable for discharge to home.
[2017-06-14] MEDS: PROMETHAZINE/CODEINE ORAL LIQUID 5ml PO PRN (14:53)
[2017-06-14 17:09] VITALS: PULSE 72
[2017-06-14 17:16] VITALS: BP 166/68; RESP 22; TEMP 99.1; O2SAT 92
== END 2017-06-14 18:15 | disposition home or self-care (01) | DRG 683 ==
LOC: ED 15:21 → MED 15:21
PROVIDERS: ADMIT Hospitalist; ATTEND Hospitalist